=== PATIENT | male | born 1950 | race Caucasian/White ===

== ENCOUNTER 2017-02-01 22:05 | Inpatient (IN) | payer OTHER ==
[~2017-02-01] VITALS: Ht 170.2 cm; Wt 58.5 kg
[2017-02-01 22:36] LABS: HEMATOCRIT 37.6 % (38.0-50.0); MCH 28.6 PG (29.0-34.0); MCHC 33.5 G/DL (30.0-36.0); MCV 85.5 FL (86-99); MEAN PLAT.VOLUME 9.7 uM^3 (9.0-12.4); PLATELET COUNT 201 K/uL (156-360); RBC DIS.WIDTH-CV 17.5 % (11.8-14.6); RBC DIS.WIDTH-SD 54.8 % (39-53); WHITE BLOOD COUNT 6.5 K/uL (4.1-10.2)
[2017-02-01 22:47] LABS: CHLORIDE 100 mEq/L (99-109); POTASSIUM 4.5 mEq/L (3.7-5.4); SODIUM 131 mEq/L (136-147)
[2017-02-01 22:49] LABS: GLUCOSE 95 mg/dL (70-99)
[2017-02-01 22:51] LABS: ANION GAP 8 MEQ/L (2-14)
[2017-02-01 22:53] LABS: GFR ESTIMATE (CALCULATED) 49 mL/min/
[2017-02-01 22:54] LABS: UREA NITROGEN (BUN) 28 mg/dL (9-23)
[2017-02-01 22:58] LABS: TROP-I INTERPRETATION NEGATIVE; TROPONIN-I < 0.01 ng/mL (0.0-0.30)
[2017-02-02 07:43] VITALS: BP 126/73
[2017-02-02 11:07] VITALS: BP 160/70
[2017-02-02 11:44] LABS: ALKALINE PHOSPHATASE 36 IU/L (3-129); ANION GAP 7 MEQ/L (2-14); CHLORIDE 105 MEQ/L (99-109); GFR ESTIMATE (CALCULATED) 58 mL/min/; POTASSIUM 4.4 MEQ/L (3.7-5.4); SAMPLE HEMOLYSIS CHECK 0; SAMPLE ICTERIC CHECK 0; SAMPLE LIPEMIA CHECK 0; SODIUM 135 MEQ/L (136-147); TOTAL BILIRUBIN 0.4 MG/DL (0.0-1.0); UREA NITROGEN (BUN) 25 mg/dL (9-23)
[2017-02-02 11:49] LABS: GLUCOSE 155 mg/dL (70-99)
[2017-02-02 12:12] LABS: D-DIMER ELISA 0.91 mg/L FEU (< 0.57)
[2017-02-02 13:07] LABS: TROP-I INTERPRETATION NEGATIVE; TROPONIN-I 0.02 ng/mL (0.0-0.30)
[2017-02-02 15:29] VITALS: BP 134/65
[2017-02-02 18:32] LABS: TROP-I INTERPRETATION NEGATIVE; TROPONIN-I 0.02 ng/mL (0.0-0.30)
[2017-02-02 20:00] VITALS: BP 104/57
[2017-02-02 22:52] LABS: ADD MIUA? NO; BILIRUBIN NEGATIVE; BLOOD NEGATIVE; COLOR YELLOW ((YELLOW)); GLUCOSE (STRIP) 150; KETONES NEGATIVE; LEUKOCYTES NEGATIVE; NITRITE NEGATIVE; PROTEIN (STRIP) NEGATIVE; SPECIFIC GRAVITY 1.015 (1.000-1.030); UCUL ADDED? NO; UROBILINOGEN 0.2 MG/DL (0.2-1.0)
[2017-02-02 23:39] VITALS: BP 115/56
[2017-02-03] VITALS (7 sets, daily range): BP systolic 120–193; BP diastolic 59–87
[2017-02-03 06:45] LABS: HEMATOCRIT 38.7 % (38.0-50.0); MCHC 33.3 G/DL (30.0-36.0); MEAN PLAT.VOLUME 10.1 uM^3 (9.0-12.4); PLATELET COUNT 176 K/uL (156-360); RBC DIS.WIDTH-CV 17.9 % (11.8-14.6); RBC DIS.WIDTH-SD 56.8 % (39-53); RED BLOOD COUNT 4.45 M/uL (4.00-5.50); WHITE BLOOD COUNT 7.5 K/uL (4.1-10.2)
[2017-02-03 08:20] LABS: ANION GAP 8 MEQ/L (2-14); CHLORIDE 108 MEQ/L (99-109); GFR ESTIMATE (CALCULATED) > 59 mL/min/; POTASSIUM 4.9 MEQ/L (3.7-5.4); SAMPLE HEMOLYSIS CHECK 0; SAMPLE ICTERIC CHECK 0; SAMPLE LIPEMIA CHECK 0; SODIUM 138 MEQ/L (136-147); UREA NITROGEN (BUN) 23 mg/dL (9-23)
[2017-02-03 08:21] LABS: GLUCOSE 101 mg/dL (70-99)
[2017-02-04 00:16] VITALS: BP 116/55
[2017-02-04 05:24] VITALS: BP 114/56
[2017-02-04 07:27] VITALS: BP 149/67
[2017-02-04 10:53] VITALS: BP 140/63
[2017-02-04 19:26] VITALS: BP 155/72
[2017-02-04 23:49] VITALS: BP 140/64
[2017-02-05 08:03] VITALS: BP 149/67
[2017-02-05] MEDS ORDERED: ASPIR-LOW81 MG PO (12:15)
[2017-02-05 12:18] VITALS: BP 147/67
[2017-02-05] MEDS ORDERED: Thiamine,Vitamin B1 PO (12:18)
[2017-02-05] MEDS ORDERED: FOLIC ACID1 MG PO (12:18)
[2017-02-05] MEDS ORDERED: NICOTINE PATCH1 EAC1 TD (12:19)
[2017-02-05] MEDS ORDERED: BUSPAR10 MG PO (12:19)
[2017-02-05] MEDS ORDERED: DULOXETINE HCL30 MG PO (12:19)
[2017-02-05] MEDS ORDERED: GABAPENTIN300 MG PO (12:19)
== END 2017-02-05 16:42 | disposition home or self-care (01) | DRG 313 ==
LOC: EME 22:05 → EDOF 02-02 05:49 → 5WEST 02-02 07:26 → 3EAST 02-02 23:22
PROVIDERS: Emergency Medicine; Hospitalist; Nurse Practitioner Adult Health
DX: R07.89 Other chest pain (principal); G89.4 Chronic pain syndrome; M54.5 Low back pain; E78.5 Hyperlipidemia, unspecified; F10.10 Alcohol abuse, uncomplicated; F11.10 Opioid abuse, uncomplicated; F14.90 Cocaine use, unspecified, uncomplicated; F17.200 Nicotine dependence, unspecified, uncomplicated; F33.2 Major depressive disorder, recurrent severe without psychotic features; F43.10 Post-traumatic stress disorder, unspecified; I10 Essential (primary) hypertension; I25.10 Atherosclerotic heart disease of native coronary artery without angina pectoris; J44.9 Chronic obstructive pulmonary disease, unspecified; R45.851 Suicidal ideations; I95.9 Hypotension, unspecified; R00.1 Bradycardia, unspecified; M54.10 Radiculopathy, site unspecified; Z88.0 Allergy status to penicillin; Z59.0 Homelessness; Z95.1 Presence of aortocoronary bypass graft; Z89.221 Acquired absence of right upper limb above elbow
CPT/HCPCS: 71020; 78579; 80048; 80053; 81003; 83880; 84484; 85027; 85379; 93005; 93970; 99281; 99285; A9539; J1650; J2270; J7030